=== PATIENT | female | born 1970 | race Two or more races ===

== ENCOUNTER 2016-07-18 18:21 | Emergency (ER) | payer SELFPAY ==
[~2016-07-18] VITALS: Wt 97.7 kg
[2016-07-18] MEDS ORDERED: ONDANSETRON 4 MG INJ IV STA (19:54)
[2016-07-18] MEDS ORDERED: morphine 4 MG/ML VIAL IV STA (19:54)
[2016-07-18] MEDS ORDERED: SOD CHLORIDE 0.9% 500 ML IV STA (19:54)
[2016-07-18 20:38] LABS: ADD SCAN DIFF NO
[2016-07-18 20:40] LABS: BASOPHILS % 0.3 % (0.0-2.0); EOSINOPHILS # 0.2 10^3/ul (0.0-0.5); EOSINOPHILS % 1.6 % (0.0-7.0); HEMATOCRIT 41.4 % (37.0-47.0); HEMOGLOBIN 13.5 g/dl (12.0-16.0); LYMPHOCYTES # 3.3 10^3/ul (0.8-2.9); LYMPHOCYTES % 25.3 % (15.0-51.0); MEAN CORPUSCULAR HEMOGLOBIN 28.8 pg (29.0-33.0); MEAN CORPUSCULAR HGB CONC 32.6 g/dl (32.0-37.0); MEAN CORPUSCULAR VOLUME 88.3 fl (82.0-101.0); MEAN PLATELET VOLUME 10.8 fl (7.4-10.4); MONOCYTES % 7.9 % (0.0-11.0); NEUTROPHIL # 8.4 10^3/ul (1.6-7.5); NEUTROPHILS % 64.6 % (39.0-77.0); PLATELET COUNT 253 10^3/UL (140-415); RED BLOOD COUNT 4.69 10^6/ul (4.20-5.40); RED CELL DISTRIBUTION WIDTH 13.2 % (11.5-14.5)
[2016-07-18 20:43] LABS: ADD UMIC YES; URINE BILIRUBIN (Dip) NEGATIVE (NEGATIVE); URINE BLOOD (Dip) 1+ (NEGATIVE); URINE COLOR LT. YELLOW (YELLOW); URINE GLUCOSE (Dip) NEGATIVE (NEGATIVE); URINE KETONES (Dip) NEGATIVE (NEGATIVE); URINE LEUKOCYTE ESTERASE (Dip) TRACE (NEGATIVE); URINE NITRITE (Dip) NEGATIVE (NEGATIVE); URINE TOTAL PROTEIN (Dip) NEGATIVE (NEGATIVE); URINE UROBILINOGEN (Dip) 0.2 E.U./dL (0.1-1.0)
--- NOTE | 2016-07-18 20:48 | RADRPT ---
PROCEDURE: CT Abdomen and Pelvis without contrast. CLINICAL INDICATION: Left lower quadrant pain and left flank pain TECHNIQUE: CT scan of the abdomen and pelvis without contrast was performed without intravenous co ntrast. Coronal and sagittal reformatted images were obtained from the axial source images. Images were reviewed on a high-resolution PACS workstation. The total exam DLP equals 933 mGy-cm. One or more of the following dose reduction techniques were used: Automated exposure control Adjustment of the mA and/or kV according to patient size. Use of iterative reconstruction technique. COMPARISON: None. FINDINGS: There is mild bibasilar atelectasis. The heart size is normal. The aorta and its branches are normal in size and caliber with minimal atherosclerotic calcification s. The kidneys are symmetric in size and density. There is no perinephric fat stranding. There is no ne phroureterolithiasis or hydronephrosis. The ureters are normal in course and caliber. Evaluation of solid organs is limited due to the lack of intravenous contrast. There is diffuse fatt y infiltration of the liver in which the right lobe of the liver measures 21.8 cm cranial-caudal. T he gallbladder, spleen, pancreas, and adrenal glands are unremarkable. A small hiatal hernia is present. The stomach is mildly distended and grossly unremarkable. The sma ll bowel loops are normal in caliber without evidence of small bowel obstruction. The appendix is v isualized, and is normal. There is no free intraperitoneal fluid or pneumoperitoneum. There is no mesenteric, retroperitoneal, or pelvic lymphadenopathy. The bladder is mildly distended, but grossly unremarkable. The uterus and adnexa are unremarkable. There is no pelvic free fluid. There are no acute fractures. Mild degenerative disk disease is noted within the thoracolumbar spin e. RPTAT: AA IMPRESSION: 1. No nephroureterolithiasis or hydronephrosis. 2. Diffuse fatty infiltration of the liver with hepatomegaly. 3. Small hiatal hernia. .Ayala Dixon MD, MD Date Time Electronically viewed and signed by .Ayala Dixon MD, on 07/18/2016 20:48 .T/
[2016-07-18 20:51] LABS: ALBUMIN 4.1 g/dl (3.3-4.9)
[2016-07-18 20:52] LABS: POTASSIUM 3.8 mmol/L (3.5-5.1)
[2016-07-18 20:54] LABS: ALBUMIN/GLOBULIN RATIO 1.07; BILIRUBIN,INDIRECT 0.1 mg/dl (0-1.1); BILIRUBIN,TOTAL 0.1 mg/dl (0.2-1.3); CREATININE 0.7 mg/dl (0.44-1.00); TOTAL PROTEIN 7.9 g/dl (6.1-8.1)
[2016-07-18 20:55] LABS: CALCIUM 8.8 mg/dl (8.4-10.2)
[2016-07-18 21:00] LABS: BACTERIA,URINE FEW; SQUAMOUS EPITHELIAL CELL,UR FEW
[2016-07-18] MEDS ORDERED: CIPR500T4 PO (22:07)
[2016-07-18] MEDS ORDERED: ACET500C5 PO (22:08)
[2016-07-18 22:50] VITALS: BP 143/71; PULSE 93; RESP 18; TEMP 98.6
--- NOTE | 2016-07-19 00:31 | ERD ---
ER Documentation Chief Complaint Date/Time DATE: 07/19/16 TIME: 00:27 Chief Complaint SUDDEN ONSET LEFT LOWER ABD PAIN AND FLANK PAIN FOR PAST HR. + DYSURIA HPI Patient is a 46 year old female who presents to the ED with left lower back pain that radiates to her left lower quadrant since a few hours ago. She complains of nausea with no vomiting. She denies fever, chills. She denies headache, dizziness. She denies chest pain, shortness of breath or difficulty breathing. She denies a history of kidney stones in the past. She states that she took Advil for her symptoms which helped a little bit. She also complains of dysuria. She denies hematuria. Last bowel movement was 2 hours ago. She is passing gas. No other complaints. ROS All systems reviewed and are negative except as per history of present illness. Medications Home Meds Active Scripts Acetaminophen* (Tylophen*) 500 Mg Capsule, 1 CAP PO Q6H Y for PAIN AND OR ELEVATED TEMP, #20 CAP Prov:TIMMY REYES PA-C 07/18/16 Ciprofloxacin Hcl* (Ciprofloxacin Hcl*) 500 Mg Tablet, 500 MG PO BID for 5 Days , TAB Prov:TIMMY REYES PA-C 07/18/16 Allergies Allergies: Coded Allergies: No Known Allergy (Verified Allergy, Mild, 11/25/06) PMhx/Soc History of Surgery: Yes () Anesthesia Reaction: No Hx Neurological Disorder: No Hx Respiratory Disorders: No Hx Cardiac Disorders: Yes Hx Psychiatric Problems: No Hx Miscellaneous Medical Probl: No Hx Alcohol Use: No Hx Substance Use: No Hx Tobacco Use: No Smoking Status: Never smoker FmHx Family History: No coronary disease, No diabetes, No other Physical Exam Vitals Vital Signs Date Time Temp Pulse Resp B/P Pulse Ox O2 Delivery O2 Flow Rate FiO2 07/18/16 22:50 98.6 93 18 143/71 100 Room Air 07/18/16 18:24 98.8 91 20 175/85 97 Physical Exam GENERAL: Well-developed, well-nourished female. Appears in no acute distress. LUNG: Clear to auscultation bilaterally. No rhonchi, wheezing, rales or coarse breath sounds. HEART: Regular rate and rhythm. No murmurs, rubs or gallops. ABDOMEN: No scars, ecchymosis or rashes noted. Soft, nontender, and nondistended. Positive bowel sounds in all four quadrants. No rebound tenderness , no guarding. (-) McBurneys point tenderness. No CVA tenderness. tenderness to llq. BACK: No midline tenderness. Extremities: Equal pulses bilaterally. No peripheral clubbing, cyanosis or edema. No unilateral leg swelling. NEUROLOGIC: Alert and oriented. Moving all four extremities. 5/5 strength in all extremities. Normal speech. Steady gait. SKIN: Normal color. Warm and dry. No rashes or lesions. Capillary refill < 2 seconds Result Diagram: 07/18/16202207/18/162022 Results 24 hrs Laboratory Tests Test 07/18/16 20:19 07/18/16 20:23 Urine Bacteria FEW Urine Bilirubin NEGATIVE Urine Clarity CLEAR Urine Color LT. YELLOW Urine Glucose NEGATIVE% Urine Hemoglobin 1+ Urine Ketones NEGATIVE Urine Leukocyte Esterase TRACE Urine Microscopic RBC 5-10/HPF Urine Microscopic WBC 2-5/HPF Urine Nitrite NEGATIVE Urine Specific [place] 1.015 Urine Squamous Epithelial Cells FEW Urine Total Protein NEGATIVE Urine Urobilinogen 0.2 E.U./dL Urine pH 7.5 Alanine Aminotransferase (ALT/SGPT) 35IU/L Albumin 4.1g/dl Albumin/Globulin Ratio 1.07 Alkaline Phosphatase 219IU/L Anion Gap 18 Aspartate Amino Transf (AST/SGOT) 28IU/L Basophils # 0.010^3/ul Basophils % 0.3% Blood Urea Nitrogen 12mg/dl Calcium Level 8.8mg/dl Carbon Dioxide Level 28mmol/L Chloride Level 103mmol/L Creatinine 0.70mg/dl Direct Bilirubin 0.00mg/dl Eosinophils # 0.210^3/ul Eosinophils % 1.6% Globulin 3.80g/dl Glucose Level 123mg/dl Hematocrit 41.4% Hemoglobin 13.5g/dl Indirect Bilirubin 0.1mg/dl Lipase 123U/L Lymphocytes # 3.310^3/ul Lymphocytes % 25.3% Mean Corpuscular Hemoglobin 28.8pg Mean Corpuscular Hemoglobin Concent 32.6g/dl Mean Corpuscular Volume 88.3fl Mean Platelet Volume 10.8fl Monocytes # 1.010^3/ul Monocytes % 7.9% Neutrophils # 8.410^3/ul Neutrophils % 64.6% Nucleated Red Blood Cells # 0.010^3/ul Nucleated Red Blood Cells % 0.0/100WBC Platelet Count 03702^3/UL Potassium Level 3.8mmol/L Red Blood Count 4.6910^6/ul Red Cell Distribution Width 13.2% Sodium Level 145mmol/L Total Bilirubin 0.1mg/dl Total Protein 7.9g/dl White Blood Count 13.010^3/ul Current Medications Medications (Trade) Dose Ordered Sig/Margarito Route PRN Reason Start Time Stop Time Status Last Admin Dose Admin Sodium Chloride (NS) 500 ml @ 500 mls/hr Q1H STAT IV 07/18/16 19:54 07/18/16 20:53 DC 07/18/16 20:39 Morphine Sulfate (morphine) 4 mg ONCE STAT IV 07/18/16 19:54 07/18/16 19:56 DC 07/18/16 20:28 Ondansetron HCl (Zofran Inj) 4 mg ONCE STAT IV 07/18/16 19:54 07/18/16 19:56 DC 07/18/16 20:25 Procedures/MDM ER COURSE: I kept the patient and/or family informed of laboratory and diagnostic imaging results throughout the emergency room course. EKG, MONITORS, & DIAGNOSTIC IMAGING: [place] [address] Radiology Main Line: [phone] DIAGNOSTIC IMAGING REPORT Patient: ROSA LIND : 1970 Age: 46 Sex: F MR #: [id number] DOS: 07/18/161953 Ordering MD: TIMMY REYES PA-C Location: E Room/Bed: PROCEDURE: CT Abdomen and Pelvis without contrast. CLINICAL INDICATION: Left lower quadrant pain and left flank pain TECHNIQUE: CT scan of the abdomen and pelvis without contrast was performed without intravenous contrast. Coronal and sagittal reformatted images were obtained from the axial source images. Images were reviewed on a high- resolution PACS workstation. The total exam DLP equals 933 mGy-cm. One or more of the following dose reduction techniques were used: Automated exposure control Adjustment of the mA and/or kV according to patient size. Use of iterative reconstruction technique. COMPARISON: None. FINDINGS: There is mild bibasilar atelectasis. The heart size is normal. The aorta and its branches are normal in size and caliber with minimal atherosclerotic calcifications. The kidneys are symmetric in size and density. There is no perinephric fat stranding. There is no nephroureterolithiasis or hydronephrosis. The ureters are normal in course and caliber. Evaluation of solid organs is limited due to the lack of intravenous contrast. There is diffuse fatty infiltration of the liver in which the right lobe of the liver measures 21.8 cm cranial-caudal. The gallbladder, spleen, pancreas, and adrenal glands are unremarkable. A small hiatal hernia is present. The stomach is mildly distended and grossly unremarkable. The small bowel loops are normal in caliber without evidence of small bowel obstruction. The appendix is visualized, and is normal. There is no free intraperitoneal fluid or pneumoperitoneum. There is no mesenteric, retroperitoneal, or pelvic lymphadenopathy. The bladder is mildly distended, but grossly unremarkable. The uterus and adnexa are unremarkable. There is no pelvic free fluid. There are no acute fractures. Mild degenerative disk disease is noted within the thoracolumbar spine. RPTAT: AA IMPRESSION: 1. No nephroureterolithiasis or hydronephrosis. 2. Diffuse fatty infiltration of the liver with hepatomegaly. 3. Small hiatal hernia. .Ayala Dixon MD, MD Date Time Electronically viewed and signed by .Ayala Dixon MD, MD on 07/18/2016 20: 48 .T/ CC: TIMMY REYES PA-C MEDICATIONS: IV fluids, morphine, Zofran. Tolerated medication well with no adverse reaction. Stated improvement in symptoms LAB INTERPRETATION: CBC showed no evidence of systemic infection or severe anemia. CMP showed no evidence of electrolyte abnormalities, severe acidosis, alkalosis, renal failure , or liver disease. Lipase showed no evidence of acute pancreatitis. Trace leukocytes. Urine test was negative. MEDICAL DECISION MAKING: This is a 46-year-old female who presents with abdominal pain. Vital signs were reviewed. Patient is afebrile. Patient is not hypoxic. Patient is not toxic or ill-appearing. Temperature 98.8 with an O2 sat of 97. Patient likely has abdominal pain of unknown etiology. Patient does have a UTI symptoms. Low suspicion for ACS, AAA, perforated ulcer, bowel obstruction, cholecystitis, choledocholithiasis, cholangitis, pancreatitis, hepatic abscess, appendicitis, diverticulitis, gastroenteritis, hepatitis, peptic ulcer disease, HELLP syndrome. Low suspicion for ovarian torsion, PID, tuboovarian abscess, ectopic , bowel obstruction, pyelonephritis, UTI, appendicitis, cervicitis, septic , molar , HELLP syndrome, preeclampsia, eclampsia, placenta previa, placenta abruptia. Patient's white count of 13.0 is likely related to stress reaction. DISCHARGE: At this time, patient is stable for discharge and outpatient management with no new complaints during the ER course. Patient was sent home with Tylenol and ciprofloxacin. Patient will be discharged home with instructions to recheck for new or worsening symptoms such as fever, nausea, weakness, LOC and to follow up with primary care in the next 1-2 days. Patient was advised to return to the ER for any new or worsening symptoms. Plan was discussed and patient and/or family understands and agrees. Home instructions were given. Departure Diagnosis: Primary Impression: Abdominal pain Abdominal location: left lower quadrant Qualified Code: R10.32 - Left lower quadrant pain Additional Impression: Back pain Back pain location: low back pain Chronicity: unspecified Back pain laterality: left Sciatica presence: without sciatica Qualified Code: M54.5 - Left-sided low back pain without sciatica, unspecified chronicity Condition: Stable Patient Instructions: Abdominal Pain Additional Instructions: Llame al doctor MAANA y fracisco daija AURA PARA DENTRO DE 1-2 VASQUEZ.Dgale a la secretaria que nosotros le instruimos hacer esta aura.Avise o llame si shelton condicin se empeora antes de la aura. Regresa aqui si peor o no mejor. TIMMY REYES PA-C Jul 19, 2016 00:31
== END 2016-07-18 22:50 | disposition home or self-care (01) ==
LOC: FTE 18:21
DX: R10.32 Left lower quadrant pain (principal); R11.0 Nausea
CPT/HCPCS: 36415; 74176; 80053; 81001; 83690; 85025; 96374; 96375; 99285; J2270; J2405; J7040; 81003

== ENCOUNTER 2018-12-14 03:18 | Inpatient (IN) | payer MEDICAID ==
[~2018-12-14] VITALS: Ht 162.6 cm; Wt 97.3 kg
[2018-12-14] VITALS (12 sets, daily range): BP systolic 124–166; BP diastolic 58–77; PULSE 80–91; RESP 14–25; Ht 162.6 cm; Wt 97.3 kg
[~2018-12-14 03:18] MED LIST: ACET500C5 PO; CIPR500T4 PO; IBUP-1542 PO
--- NOTE | 2018-12-14 05:33 | ERD ---
ER Documentation Chief Complaint Chief Complaint vaginal bleed X2 days,pelvic pain HPI This is a 48 yo female patient who presents to the ER with c/o vaginal bleeding x2 days. Patient concern is with blood clots 2 days ago, although the volume has greatly reduced over the last 2 days. Describes blood as being dark red. Volume light enough now to no longer need a tampon or pad. Describes BL lower pelvic cramping pain. Patient is nany-menopausal. Last period 4 moths ago, then had some spotting 2 weeks ago, and now has had some bleeding over 2 days. States she has had regular paps throughout her life, no abnormal results. No history of endometriosis or fibroids.. No family history of assistant clinical nurse manager cancers. No recent weight loss, illness, malaise, or unusual bruising or other bleeding. 8 months ago states she was diagnosed with right sided ovarian cyst and anemia. , vaginal births without complications. ROS All systems reviewed and are negative except as per history of present illness. Medications Home Meds Active Scripts Ibuprofen* (Motrin*) 600 Mg Tab, 600 MG PO Q6, #30 TAB Prov:SURINDER RAY NP 12/14/18 Acetaminophen* (Tylophen*) 500 Mg Capsule, 1 CAP PO Q6H PRN for PAIN AND OR ELEVATED TEMP, #20 CAP Prov:TIMMY REYES PA-C 07/18/16 Ciprofloxacin Hcl* (Ciprofloxacin Hcl*) 500 Mg Tablet, 500 MG PO BID for 5 Days, TAB Prov:TIMMY REYES PA-C 07/18/16 Allergies Allergies: Coded Allergies: No Known Allergy (Verified Allergy, Mild, 11/25/06) PMhx/Soc History of Surgery: Yes () Anesthesia Reaction: No Hx Neurological Disorder: No Hx Respiratory Disorders: No Hx Cardiac Disorders: Yes Hx Psychiatric Problems: No Hx Miscellaneous Medical Probl: No Hx Alcohol Use: No Hx Substance Use: No Hx Tobacco Use: No Smoking Status: Never smoker FmHx Family History: No diabetes, No coronary disease, No other Physical Exam Vitals Vital Signs Date Temp Pulse Resp B/P (MAP) Pulse Ox O2 O2 Flow FiO2 Time Delivery Rate 12/14/18 98.5 89 18 109/55 98 03:27 (73) Physical Exam Const: No acute distress Head: Atraumatic Eyes: Normal Conjunctiva, PERRL ENT: Normal External Ears, Nose and Mouth. Neck: Full range of motion. No meningismus. No lympthadenopathy. Resp: Clear to auscultation bilaterally Cardio: Regular rate and rhythm, no murmurs Abd: Soft, non distended. Normal bowel sounds. +tender at RLQ/LLQ Skin: No petechiae or rashes Back: No midline or flank tenderness, no CVT Ext: No cyanosis, or edema Neur: Awake and alert Psych: Normal Mood and Affect Result Diagram: 12/14/18 1632 Results 24 hrs Laboratory Tests Test 12/14/18 04:42 12/14/18 05:41 POC Beta HCG, Qualitative NEGATIVE White Blood Count 12.7 10^3/ul Red Blood Count 3.31 10^6/ul Hemoglobin 7.6 g/dl Hematocrit 26.5 % Mean Corpuscular Volume 80.1 fl Mean Corpuscular Hemoglobin 23.0 pg Mean Corpuscular Hemoglobin Concent 28.7 g/dl Red Cell Distribution Width 17.7 % Platelet Count 294 10^3/UL Mean Platelet Volume 10.7 fl Immature Granulocytes % 1.200 % Neutrophils % 77.9 % Lymphocytes % 15.3 % Monocytes % 4.6 % Eosinophils % 0.5 % Basophils % 0.5 % Nucleated Red Blood Cells % 0.2 /100WBC Immature Granulocytes # 0.150 10^3/ul Neutrophils # 9.9 10^3/ul Lymphocytes # 1.9 10^3/ul Monocytes # 0.6 10^3/ul Eosinophils # 0.1 10^3/ul Basophils # 0.1 10^3/ul Nucleated Red Blood Cells # 0.0 10^3/ul Urine Color YELLOW Urine Clarity TURBID Urine pH 5.0 Urine Specific [place] 1.027 Urine Ketones NEGATIVE mg/dL Urine Nitrite NEGATIVE mg/dL Urine Bilirubin NEGATIVE mg/dL Urine Urobilinogen NEGATIVE mg/dL Urine Leukocyte Esterase NEGATIVE Nnamdi/ul Urine Microscopic RBC > 182 /HPF Urine Microscopic WBC 44 /HPF Urine Amorphous Crystals MANY /HPF Urine Bacteria MODERATE /HPF Urine Mucus MODERATE /HPF Urine Hemoglobin 3+ mg/dL Urine Glucose NEGATIVE mg/dL Urine Total Protein 1+ mg/dl Procedures/MDM Patient transfer of care from Surinder Ray (PROOFREADER) to Jadiel Johnston (SUE). Patient presented to the ED for vaginal bleeding and pelvic pain. CBC revealed low hemat ocrit (7.6) and hemoglobin (26.5) and urinalysis shows urine RBCs, urine bacteria, urine mucus, urine WBC. Type and screen with VEHICLE MONITOR TECHNICIAN consult for possible admit was initiated after consultation with Dr. Rueda. Patient's pelvic ultrasound revealed endometrium thickness of 8 mm and a simple 1.9 cm right ovarian cyst. Urologist recommends VEHICLE MONITOR TECHNICIAN follow-up for further evaluation with hysterosonography. Patient reports last meal at 8 PM on 12/13/2018. Patient admits that she has been getting constant menstrual cycle on a monthly basis. Patient admits that she was evaluated by her PCP and was advised she is in a perimenopausal state. Patient reports that she was diagnosed by her PCP with mild anemia and was not given any treatment. Further consultation with Dr. Rueda yielded admit to VEHICLE MONITOR TECHNICIAN for further evaluation. Provider spoke with Dr. Gallo for transfer of care. Departure Diagnosis: Primary Impression: Vaginal bleeding Condition: Stable SURINDER RAY NP Dec 14, 2018 05:33 JADIEL JOHNSTON PA-C Dec 14, 2018 07:16
--- NOTE | 2018-12-14 12:18 | HP ---
Date/Time of Note Date/Time of Note DATE: 12/14/18 TIME: 12:03 Assessment/Plan VTE Prophylaxis SCD applied (from Nsg): No SCD contraindicated: low risk/ambulating Pharmacological prophylaxis: NA/contraindicated Pharm contraindication: low risk/ambulating Lines/Catheters IV Catheter Type (from Nrsg): Saline [place] Central line still needed: No Urinary Cath still in place: No Assessment/Plan Hospital Course postmenopausal bleeding Assessment/Plan A Postmenopausal bleeding P D&C Result Diagram: 12/14/18 0541 Results 24hrs Laboratory Tests Test 12/14/18 04:42 12/14/18 05:41 POC Beta HCG, Qualitative NEGATIVE White Blood Count 12.7 H Red Blood Count 3.31 #L Hemoglobin 7.6 #L Hematocrit 26.5 #L Mean Corpuscular Volume 80.1 L Mean Corpuscular Hemoglobin 23.0 #L Mean Corpuscular Hemoglobin Concent 28.7 L Red Cell Distribution Width 17.7 #H Platelet Count 294 Mean Platelet Volume 10.7 H Immature Granulocytes % 1.200 H Neutrophils % 77.9 H Lymphocytes % 15.3 Monocytes % 4.6 Eosinophils % 0.5 Basophils % 0.5 Nucleated Red Blood Cells % 0.2 H Immature Granulocytes # 0.150 H Neutrophils # 9.9 H Lymphocytes # 1.9 Monocytes # 0.6 Eosinophils # 0.1 Basophils # 0.1 Nucleated Red Blood Cells # 0.0 Urine Color YELLOW Urine Clarity TURBID A Urine pH 5.0 Urine Specific [place] 1.027 Urine Ketones NEGATIVE Urine Nitrite NEGATIVE Urine Bilirubin NEGATIVE Urine Urobilinogen NEGATIVE Urine Leukocyte Esterase NEGATIVE Urine Microscopic RBC > 182 H Urine Microscopic WBC 44 H Urine Amorphous Crystals MANY A Urine Bacteria MODERATE Urine Mucus MODERATE Urine Hemoglobin 3+ H Urine Glucose NEGATIVE Urine Total Protein 1+ H HPI/ROS Admit Date/Time Admit Date/Time Dec 14, 2018 at 07:20 Hx of Present Illness 48 y.o G1P!A0 LMP more than 1yr ago start having vaginal bleeding for the last several month which lasting more than 10days on and off. presented ED with heavy vaginal bleeding ,today ER physician wants to blood transfusion prior to peform endometrial biopsy. patient reluctant to receive blood transfusion ,discuss with anesthesiologist .and will go ahead do procedure without blood transfusion ROS vaginal bleeding Constitutional: no complaints, improved ENT: no complaints Respiratory: no complaints Cardiovascular: no complaints Gastrointestinal: no complaints Genitourinary: no complaints, bleeding Musculoskeletal: no complaints Skin: no complaints Neurologic: no complaints Endocrine: no complaints; No polyuria, No polydypsia, No dry skin, No temp intolerance, No weight change, No other Lymphatic: no complaints Psychological: no complaints, nl mood/affect PMH/Family/Social Past Medical History Medical History: no pertinent history Medications tylenol Coded Allergies: No Known Allergy (Verified Allergy, Mild, 11/25/06) Past Surgical History x1 c/s Past Surgical Hx: other (one c/s) Family History Significant Family History: cancer (father stomach cancer mother DM), diabetes, other Social History Alcohol Use: none Smoking Status: Current every day smoker Drug Use: none Exam/Review of Systems Vital Signs Vitals Vital Signs Date Temp Pulse Resp B/P (MAP) Pulse Ox O2 O2 Flow FiO2 Time Delivery Rate 12/14/18 98.0 88 16 131/58 100 Room Air 09:17 (82) Exam Constitutional: alert, oriented, well developed Psych: no complaints, nl mood/affect Head: normocephalic, atraumatic Eyes: nl conjunctiva, EOMI, nl lids, nl sclera, PERRL ENMT: nl external ears & nose, nl lips & teeth, nl nasal mucosa & septum Neck: supple, non-tender Respiratory: clear to auscultation, normal air movement Cardiovascular: regular rate and rhythm, nl pulses Gastrointestinal: soft, nl liver, spleen, non-tender Genitourinary - Female: other (u/s endometrium 8m after heavy vaginal bleeding) Musculoskeletal: nl extremities to inspection Extremities: normal pulses Neurological: ICE MAKER II-XII intact, nl mental status, nl speech, nl strength Skin: nl turgor; No rash or lesions Lymph: nl lymph nodes RUSH LOTT MD Dec 14, 2018 12:14
[2018-12-14] MEDS ORDERED: ONDANSETRON 4 MG INJ IV PRN (12:30)
[2018-12-14] MEDS ORDERED: HYDROmorphONE 1 MG/5 ML IV SYRINGE IV PRN ×3 (12:30)
[2018-12-14] MEDS ORDERED: LABETALOL HCL 20MG INJ IV PRN (12:30)
[2018-12-14] MEDS ORDERED: TRIMETHOBENZAMIDE 100 MG/ML VIAL IM PRN (12:30)
[2018-12-14] MEDS ORDERED: FENTAnyl 50 MCG/ML VIAL IV PRN ×3 (12:30)
[2018-12-14] MEDS ORDERED: MIDAZOLAM 1 MG/ML 2 ML INJ IV PRN (12:30)
[2018-12-14] MEDS ORDERED: hydrALAzine 20 MG INJ IV PRN (12:30)
[2018-12-14] MEDS ORDERED: MEPERIDINE 25 MG INJ IV PRN (12:30)
[2018-12-14] MEDS ORDERED: OXYCODONE/ACETAMINOPHEN (5/325) TAB PO PRN ×2 (12:30)
[2018-12-14] MEDS ORDERED: IPRATROPIUM (NEB) 0.5 MG/2.5 ML AMP HHN PRN (12:30)
[2018-12-14] MEDS ORDERED: EPHEDrine 25 MG/5 ML SYG IV PRN (12:30)
[2018-12-14] MEDS ORDERED: ALBUTEROL 0.083% (NEB) 2.5 MG/3 ML AMP HHN PRN (12:30)
[2018-12-14] MEDS ORDERED: DIPHENHYDRAMINE 50 MG INJ IV PRN (12:30)
--- NOTE | 2018-12-14 12:56 | PREAC ---
Date/Time of Note Date/Time of Note DATE: 12/14/18 TIME: 12:54 Anesthesia Eval and Record Evaluation Time Pre-Procedure Interview DATE: 12/14/18 TIME: 12:54 Age 48 Sex female NPO: 8 hrs Preoperative diagnosis postmenopausal bleeding Planned procedure fractional d&c Past Medical History Past Medical History: Includes Endo: Diabetes GI: Obesity Surgery & Anesthesia Issues No known issue Meds Anticoagulation: No Beta Charlene within 24 hr: No Reason Beta Charlene not given: Pt. not on B-Charlene Active Scripts Ibuprofen* (Motrin*) 600 Mg Tab, 600 MG PO Q6, #30 TAB Prov:SURINDER RAY FOOD SCIENCE PROFESSOR 12/14/18 Acetaminophen* (Tylophen*) 500 Mg Capsule, 1 CAP PO Q6H PRN for PAIN AND OR ELEVATED TEMP, #20 CAP Prov:TIMMY REYES PA-C 07/18/16 Ciprofloxacin Hcl* (Ciprofloxacin Hcl*) 500 Mg Tablet, 500 MG PO BID for 5 Days, TAB Prov:TIMMY REYES PA-C 07/18/16 Meds reviewed: Yes Allergies Coded Allergies: No Known Allergy (Verified Allergy, Mild, 11/25/06) Allergies Reviewed: Yes Labs/Studies Labs Reviewed: Reviewed by anesthesiologist Result Diagram: 12/14/18 0541 Laboratory Tests 12/14/18 05:41 Blood Bank Test 12/14/18 07:13 Antibody Screen NEGATIVE Blood Product Summary Counts Blood Type O POSITIVE Crossmatch Red Blood Cells test: N/A Pre-procedure Exam Last vitals Vital Signs Date Temp Pulse Resp B/P (MAP) Pulse Ox O2 O2 Flow FiO2 Time Delivery Rate 12/14/18 98.0 88 16 131/58 100 Room Air 09:17 (82) Airway: Adequate mouth opening, Adequate thyromental dist Mallampati: Mallampati II Teeth: Abnormal (upper denture, multiple missing teeth) Lung: Normal Heart: Normal ASA Physical Status ASA physical status: 2 Emergency: None Planned Anesthetic General/MAC: ETT Planned Pain Management Parenteral pain med Pre-operative Attestations Prior to commencing anesthesia and surgery, the patient was re-evaluated, there was verification of: *The patient's identity *The results of appropriate recent lab work and preoperative vital signs *The above evaluation not changing prior to induction *Anesthetic plan, risk benefits, alternative and complications discussed with patient/family; questions answered; patient/family understands, accepts and wishes to proceed. Jac Monsivais M.D. Dec 14, 2018 12:56
[2018-12-14] MEDS ORDERED: CEFAZOLIN 1 GM INJ ONE (12:57)
[2018-12-14] MEDS ORDERED: GLYCOPYRROLATE 0.4 MG INJ ONE (12:57)
[2018-12-14] MEDS ORDERED: PROPOFOL 20 ML ONE (12:57)
[2018-12-14] MEDS ORDERED: ROCURONIUM 50 MG INJ ONE (12:57)
[2018-12-14] MEDS ORDERED: NEOSTIGMINE 3 MG/3 ML SYRINGE ONE (12:57)
[2018-12-14] MEDS ORDERED: MIDAZOLAM 1 MG/ML 2 ML INJ ONE (12:58)
[2018-12-14] MEDS ORDERED: DEXAMETHASONE 4 MG/ML 5 ML INJ ONE (12:58)
[2018-12-14] MEDS ORDERED: FENTAnyl 50 MCG/ML VIAL ONE (12:58)
[2018-12-14] MEDS ORDERED: ONDANSETRON 4 MG INJ ONE (12:58)
[2018-12-14] MEDS ORDERED: DESFLURANE 15 MIN ONE (13:00)
[2018-12-14] MEDS ORDERED: SUCCINYLCHOLINE CHLORIDE 100 MG/5 ML SYG IV ONE (13:00)
--- NOTE | 2018-12-14 13:44 | SIPON ---
Date/Time of Note Date/Time of Note DATE: 12/14/18 TIME: 13:39 Operative Report Preoperative Diagnosis Postmenopausal bleeding Postoperative Diagnosis pedunculated uterine fibroid postmenopausal bleeding see pathologic report Operation/Procedure Performed myomectomy fractional D&C Surgeon see signature line geological survey field assistant PAT masters Anesthesia: general Estimated blood loss: none Transfusion Required one unit pack during surgery due to preop H&H low Specimen myoma endocerviical curetting endometrial curettings Grafts/Implants none Complications none RUSH LOTT MD Dec 14, 2018 13:44
--- NOTE | 2018-12-14 13:46 | PD.PPDC ---
REGISTERED PUBLIC SURVEYOR Discharge Instruction Diagnosis Outak0Ic Final Diagnosis: Wvthf0s postmenopausaaaal bleeding pedunculated uterine fibroid Condition Derjt1Fg Patient Condition: Cbout1w Stable Diet [id number] Diet: Zdcep8z Resume Regular Diet Activity/Restrictions Lziuf6Uf Activity: Siazf7r May Shower Kllym2Oc Restrictions: Gdjzk6p No Sexual Activity Nothing in the Vagina No [place] No Tampons, douche Follow-up Follow-up with Physician: 2, Week/Weeks Provider Information: at my office [phone] Return to clinic for [id number] [employer]NER Instructions: Yjgcp1d Fever greater than 101 Chills Worsening abdominal pain Excessive Vaginal Bleeding More than 2 pads per hour Unable to tolerate diet RUSH LOTT MD Dec 14, 2018 13:46
--- NOTE | 2018-12-14 13:52 | PAC ---
Date/Time of Note Date/Time of Note DATE: 12/14/18 TIME: 13:52 Post-Anesthesia Notes Post-Anesthesia Note Last documented vital signs Vital Signs Date Temp Pulse Resp B/P (MAP) Pulse Ox O2 O2 Flow FiO2 Time Delivery Rate 12/14/18 98.0 88 16 131/58 100 Room Air 09:17 (82) Activity: WNL Respiratory function: WNL Cardiovascular function: WNL Mental status: Baseline Pain reasonably controlled: Yes Hydration appropriate: Yes Nausea/Vomiting absent: Yes Jac Monsivais M.D. Dec 14, 2018 13:52
--- NOTE | 2018-12-20 11:52 | OPR ---
DATE OF OPERATION: 12/14/2018 PREOPERATIVE DIAGNOSIS: Post-menopausal bleeding. POSTOPERATIVE DIAGNOSES: Pedunculated uterine fibroid and post-menopausal bleeding. OPERATION PERFORMED: Myomectomy and fractional dilatation and curettage. ANESTHESIA: General. ANESTHESIOLOGIST: Refer to the chart. SURGEON: Gina Gallo MD ESTIMATED BLOOD LOSS: Negligible. Final sponge count was correct. Transfusion required 1 unit packed during the surgery due to preop H and H low. ANESTHESIOLOGIST: Dr. Monsivais. PROCEDURE: Under proper induction of general anesthesia, the patient was placed in dorsal lithotomy position. Perineal area and vagina wall was prepped and draped in usual aseptic manner. Bimanual ex amination revealed uterus was relatively normal size and freely mobile and weighted speculum was intr oduced, and it was noticed that the pedunculated fibroid was protruding through the os to the vagina . This was twisted and counterclockwise and removed from the field and the cavity was sounded, which was 8 cm and an endocervical curettage was done with obtaining scanty tissue which was sent to patho logy and the uterine endometrial curet attached with obtaining very small amount of tissue also sent to the pathology separately. No bleeding noted. All the instruments were removed from the operative field. The patient withstood procedure well and was sent to the recovery room in stable condition. Dictated By: GINA MCKEON/AURELIA Conf#: [id number] DID#: [id number]
--- NOTE | 2019-01-03 09:46 | DS ---
Date/Time of Note Date/Time of Note DATE: 01/03/19 TIME: 09:43 Discharge Summary Admission/Discharge Info Admit Date/Time Dec 14, 2018 at 07:20 Discharge Date/Time Dec 14, 2018 at 18:19 Discharge Diagnosis postmenopausal bleeding pedunculated uterine fibroid Patient Condition: Stable Consults n/a Procedures D &C myomectomy Hx of Present Illness 48 y.o G1P!A0 LMP more than 1yr ago start having vaginal bleeding for the last several month which lasting more than 10days on and off. presented ED with heavy vaginal bleeding ,today ER physician wants to blood transfusion prior to peform endometrial biopsy. patient reluctant to receive blood transfusion ,discuss with anesthesiologist .and will go ahead do procedure without blood transfusion Hospital Course postmenopausal bleeding underwent D&C Myomectomy Home Meds Active Scripts Ibuprofen* (Motrin*) 600 Mg Tab, 600 MG PO Q6, #30 TAB Prov:SURINDER RAY NP 12/14/18 Acetaminophen* (Tylophen*) 500 Mg Capsule, 1 CAP PO Q6H PRN for PAIN AND OR ELEVATED TEMP, #20 CAP Prov:TIMMY REYES PA-C 07/18/16 Ciprofloxacin Hcl* (Ciprofloxacin Hcl*) 500 Mg Tablet, 500 MG PO BID for 5 Days, TAB Prov:TIMMY REYES PA-C 07/18/16 Follow-up Plan f/u by her RADIOGRAPHER TECHNOLOGIST in 2weeks Primary Care Provider Care Physician No Primary Time spent on discharge: < 30 minutes RUSH LOTT MD Jan 03, 2019 09:46
== END 2018-12-14 18:19 | disposition home or self-care (01) | DRG 743 ==
LOC: FTE 03:18 → PP2 07:20
PROVIDERS: ADMIT Obstetrics & Gynecology; ATTEND Obstetrics & Gynecology
PROC: 0UDB7ZZ Extraction of Endometrium, Via Natural or Artificial Opening (ICD-10-PCS; 2018-12-14)
PROC: 30233N1 Transfusion of Nonautologous Red Blood Cells into Peripheral Vein, Percutaneous Approach (ICD-10-PCS; 2018-12-14)
PROC: 0UB97ZZ Excision of Uterus, Via Natural or Artificial Opening (ICD-10-PCS; principal; 2018-12-14 13:00)
DX: D25.9 Leiomyoma of uterus, unspecified (principal); N95.0 Postmenopausal bleeding; D64.9 Anemia, unspecified; E11.9 Type 2 diabetes mellitus without complications; E66.9 Obesity, unspecified; F17.200 Nicotine dependence, unspecified, uncomplicated; Z68.36 Body mass index [BMI] 36.0-36.9, adult
CPT/HCPCS: 36430; 76830; 76856; 81001; 81025; 85014; 85018; 85025; 86850; 86900; 86901; 86920; 88305; 88307; J0690; J1100; J1170; J2250; J2405; J2710; J3010; P9016